=== PATIENT | female | born 1990 | race Caucasian/White ===

== ENCOUNTER 2016-09-07 08:29 | Emergency (ER) | payer BC ==
[~2016-09-07] VITALS: Ht 162.6 cm; Wt 65.7 kg
[~2016-09-07 08:29] MED LIST: LORTAB 5-325 M1 EACH PO; MOTRIN600 MG PO
[2016-09-07 08:32] VITALS: BP 124/77
[2016-09-07] MEDS ORDERED: FLUTICASONE PRO16 GM BOTH NARES (08:50)
[2016-09-07] MEDS ORDERED: NUVARING VAGIN1 EACH VG (08:50)
[2016-09-07] MEDS ORDERED: TESSALON200 MG PO (08:57)
== END 2016-09-07 09:19 | disposition home or self-care (01) ==
LOC: EME 08:29
DX: J06.9 Acute upper respiratory infection, unspecified (principal)
CPT/HCPCS: 99281; 99283

== ENCOUNTER 2016-12-18 20:50 | Emergency (ER) | payer BC ==
[~2016-12-18] VITALS: Ht 160 cm; Wt 63.0 kg
[~2016-12-18 20:50] MED LIST changes: +FLUTICASONE PRO16 GM BOTH NARES; +NUVARING VAGIN1 EACH VG; +TESSALON200 MG PO
[2016-12-18 22:34] LABS: CHLORIDE 107 mEq/L (99-109); POTASSIUM 3.9 mEq/L (3.7-5.4); SODIUM 139 mEq/L (136-147)
[2016-12-18 22:36] LABS: GLUCOSE 84 mg/dL (70-99)
[2016-12-18 22:37] LABS: ANION GAP 10 MEQ/L (2-14)
[2016-12-18 22:40] LABS: GFR ESTIMATE (CALCULATED) > 59 mL/min/
[2016-12-18 22:40] LABS: ADD MIUA? YES; BILIRUBIN NEGATIVE; BLOOD NEGATIVE; COLOR YELLOW ((YELLOW)); GLUCOSE (STRIP) NEGATIVE; KETONES 5; LEUKOCYTES TRACE; NITRITE NEGATIVE; PROTEIN (STRIP) NEGATIVE; SPECIFIC GRAVITY 1.023 (1.000-1.030); UROBILINOGEN 0.2 MG/DL (0.2-1.0)
[2016-12-18 22:41] LABS: UREA NITROGEN (BUN) 15 mg/dL (9-23)
[2016-12-18 22:43] LABS: QUANTITATIVE HCG < 4.0 MIU/ML
[2016-12-18 22:58] LABS: BACTERIA 1+ /HPF; EPITHELIAL CELLS 1+ /HPF; HYALINE CASTS 0-5 /LPF; MUCUS 1+ /LPF; RED BLOOD CELLS 0-5 /HPF (0-5); UCUL ADDED? NO; WHITE BLOOD CELLS 0-5 /HPF (0-5)
[2016-12-18 22:59] LABS: HEMATOCRIT 39.1 % (36.0-46.0); MCHC 31.5 G/DL (30.0-36.0); MCV 69.8 FL (83-99); MEAN PLAT.VOLUME 11.9 uM^3 (9.5-12.4); PLATELET COUNT 214 K/uL (156-360); RBC DIS.WIDTH-CV 13.4 % (11.8-14.6); WHITE BLOOD COUNT 10.1 K/uL (4.1-10.2)
[2016-12-19] MEDS ORDERED: TORADOL10 MG PO (00:17)
[2016-12-19 00:23] VITALS: BP 157/72
== END 2016-12-19 00:32 | disposition home or self-care (01) ==
LOC: EME 20:50
PROVIDERS: Physician Assistant
DX: R10.9 Unspecified abdominal pain (principal); M54.9 Dorsalgia, unspecified
CPT/HCPCS: 80048; 81003; 84702; 85027; 99281; 99285

== ENCOUNTER 2018-02-07 21:02 | Emergency (ER) | payer OTHER, BC ==
[~2018-02-07] VITALS: Ht 160 cm; Wt 69.1 kg
[~2018-02-07 21:02] MED LIST changes: +TORADOL10 MG PO
[2018-02-07] MEDS ORDERED: FLEXERIL10 MG PO (22:03)
[2018-02-07 22:16] VITALS: BP 109/68
== END 2018-02-07 22:16 | disposition home or self-care (01) ==
LOC: EME 21:02 → EXP 21:02
DX: S16.1XXA Strain of muscle, fascia and tendon at neck level, initial encounter (principal); S39.012A Strain of muscle, fascia and tendon of lower back, initial encounter; V49.40XA Driver injured in collision with unspecified motor vehicles in traffic accident, initial encounter; Y92.410 Unspecified street and highway as the place of occurrence of the external cause; Z88.0 Allergy status to penicillin
CPT/HCPCS: 99281; 99283